=== PATIENT | male | born 2000 | race Caucasian/White ===

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

== ENCOUNTER 2019-02-23 19:20 | Emergency (ER) | payer BC ==
[~2019-02-23] VITALS: Ht 188 cm; Wt 77.3 kg
[2019-02-23 19:23] VITALS: TEMP 98
[2019-02-23 20:09] VITALS: BP 120/87
[2019-02-23 21:08] VITALS: PULSE 84
== END 2019-02-23 21:50 | disposition home or self-care (01) ==
LOC: COL.ER 19:20
DX: J93.9 Pneumothorax, unspecified (principal)

== ENCOUNTER → 2019-02-24 | Outpatient (CLI) | payer BC | LOC: COL.RAD 10:49 → COL.LAB 10:49 | DX: J93.9 Pneumothorax, unspecified (principal) ==